=== PATIENT | male | born 1990 | race Two or more races ===

== ENCOUNTER 2021-01-25 13:03 | Emergency (ER) | payer OTHER ==
[~2021-01-25] VITALS: Ht 185.4 cm; Wt 81.6 kg
[2021-01-25] MEDS ORDERED: CYCLOBENZAPRINE10 MG PO (15:29)
[2021-01-25] MEDS ORDERED: DICLOFENAC POTA50 MG PO (15:29)
== END 2021-01-25 15:39 | disposition home or self-care (01) ==
LOC: ER 13:03
DX: S56.811A Strain of other muscles, fascia and tendons at forearm level, right arm, initial encounter (principal); X50.0XXA Overexertion from strenuous movement or load, initial encounter; Y93.89 Activity, other specified; Y92.098 Other place in other non-institutional residence as the place of occurrence of the external cause; Y99.8 Other external cause status